=== PATIENT | male | born 1985 | race African-American/Black ===

== ENCOUNTER 2019-11-13 04:55 | Emergency (ER) | payer OTHER ==
[~2019-11-13] VITALS: Ht 167.6 cm; Wt 75.0 kg
[2019-11-13 05:14] VITALS: BP 118/55
[2019-11-13] MEDS ORDERED: KETOROLAC 60MG 2ML VIAL IM ONE (06:15)
[2019-11-13] MEDS ORDERED: CYCLOBENZAPRINE 10MG TABLET PO ONE (06:15)
[2019-11-13] MEDS ORDERED: NAPR-837 PO (06:17)
[2019-11-13] MEDS ORDERED: CYCL-707 PO (06:17)
== END 2019-11-13 06:56 | disposition home or self-care (01) ==
LOC: M ED 04:55
DX: M54.5 Low back pain (principal); W01.0XXA Fall on same level from slipping, tripping and stumbling without subsequent striking against object, initial encounter; Y99.0 Civilian activity done for income or pay; Y92.9 Unspecified place or not applicable; Y93.9 Activity, unspecified; F17.200 Nicotine dependence, unspecified, uncomplicated